=== PATIENT | male | born 1950 | race Caucasian/White ===

== ENCOUNTER 2016-12-25 14:21 | Inpatient (IN) | payer OTHER, BC ==
--- NOTE | ~2016-12-25 | PRECARD ---
[facility] [address] [place]. [address] NAME: MARLO JACKSON : 52 STATUS : REG ER PAT#: [id number] AGE: 66 ADM/REG DATE : 12/25/16 MR#: [id number] REPORT SERV DATE: 12/25/16 DICTATED BY: LUZ MARIA CARTER DATE: 12/25/16 REPORT STATUS : Draft TRANSCRIBED BY: JAMAAL DATE: 12/25/16 DATE OF ADMISSION: 12/25/2016 HISTORY OF PRESENT ILLNESS: Mr. Marlo Jackson is a 66-year-old gentleman with known coronary artery disease, admitted to the emergency room with ongoing chest discomfort. Mr. Jackson had bypass surgery with Dr. Sheikh, 01/1999. He had multiple subsequent percutaneous interventions, including stents placed to the vein graft in 05/2016. He had had recurrent chest pain in the last two weeks. He has been taking nitroglycerin 3 or 4 per day. Today, he is developing resting symptoms. He reported to the emergency room, ongoing discomfort, the EKG is unchanged, troponin is 3.07. He denies orthopnea or PND. No palpitations. No recent stroke or stroke-like symptoms. PAST MEDICAL HISTORY: 1. Prior tobacco use. 2. History of lung cancer. 3. Diabetes. 4. Hypertension. SOCIAL HISTORY: He is a retired RN. MEDICATIONS: He is uncertain, we are trying to obtain med list now. FAMILY HISTORY: Positive for coronary artery disease. REVIEW OF SYSTEMS: Complete review of systems was obtained, pertinent negative and unremarkable except as noted above and below. All systems addressed. PHYSICAL EXAMINATION: VITAL SIGNS: Blood pressure is 140/80, heart rate is about 70. GENERAL: Comfortable, in no acute distress. HEENT: No xanthelasma; lips without cyanosis LUNGS: Clear to auscultation, no wheezes, rales or rhonchi; good breath sounds. COR: No JVD or hepatojugular reflux, no murmurs, rubs or gallops, impulse mid clavicular line without carotid or abdominal bruits; normal S1 and S2. ABDOMEN: Bowel sounds positive, normal activity, without tenderness, masses or hepatosplenomegaly. EXTREMITIES: No edema, cyanosis. SKIN: Normal turgor. Ms: Normal muscle strength, without kyphosis/scoliosis. NEURO/PSYCH: Alert and oriented times 4, no apparent anxiety or depression. EKG, sinus rhythm with T-wave inversion in lateral leads noted previously. H&P [address] [address] NAME: MARLO JACKSON : 52 STATUS : REG ER PAT#: [id number] AGE: 66 ADM/REG DATE : 12/25/16 MR#: [id number] REPORT SERV DATE: 12/25/16 DICTATED BY: LUZ MARIA CARTER DATE: 12/25/16 REPORT STATUS : Draft TRANSCRIBED BY: JAMAAL DATE: 12/25/16 LABORATORY DATA: BUN 14, creatinine 1.1. Hematocrit 46.3. Troponin 3.08. Glucose 123. ASSESSMENT: Mr. Jackson is a very nice 66-year-old gentleman with known coronary artery disease, prior bypass surgery, ongoing chest discomfort. Troponin is elevated. EKG is unchanged. PLAN: Plan to commence treatment with heparin, aspirin, nitroglycerin, perhaps nitroglycerin IV. We will plan on proceeding with cardiac catheterization and possible angioplasty. I discussed the risks, benefits, and alternatives with Mr. Jackson. He understands and agrees to proceed. SHONA/JAMAAL Luz Maria Carter M.D. / [id number] CC: Favio Cheek II, M.D.
[2016-12-25 13:14] LABS: BASOPHILS 0.7 %; BASOPHILS ABSOLUTE 0.06 10/3/uL (0.0-0.16); EOSINOPHILS ABSOLUTE 0.37 10/3/uL (0.0-0.53); HEMATOCRIT 46.3 % (40.0-51.0); HEMOGLOBIN 16.2 g/dL (13.6-17.8); IMMATURE GRANULOCYTES 0.2 %; IMMATURE GRANULOCYTES ABSOLUTE 0.02 10/3/uL (0.0-0.11); LYMPHOCYTES 20.1 %; LYMPHOCYTES ABSOLUTE 1.85 10/3/uL (0.67-4.30); MEAN CORPUSCULAR HEMOGLOB 28.2 pg (26.0-34.0); MEAN CORPUSCULAR VOLUME 80.5 fL (80-100); MEAN PLATELET VOLUME 9.8 fL (9.2-13.0); MONOCYTES 5.1 %; MONOCYTES ABSOLUTE 0.47 10/3/uL (0.21-1.20); NEUTROPHILS 69.9 %; NEUTROPHILS ABSOLUTE 6.42 10/3/uL (2.02-8.40); PLATELET COUNT 123 10/3/uL (150-400); RBC DISTRIBUTION WIDTH 14.2 % (12.0-16.0); RED CELL COUNT 5.75 10/6/uL (4.7-6.1)
[2016-12-25 13:17] LABS: ER CBC TAT 0 Hrs 09 Mins; MANUAL DIFF NO %; WHITE BLOOD CELLS 9.2 10/3/uL (4.5-10.5)
[2016-12-25 13:26] LABS: INTERNATIONAL NORMAL RATI 1.1 UNITS (-); PARTIAL THROMBO TIME 28.6 SEC (22.5-37.2); PROTIME (NOT ORD) 14.2 SEC (12.0-14.5)
[2016-12-25 13:31] LABS: BUN (BLOOD UREA NITROGEN) 14 MG/DL (6-23); CHLORIDE, SERUM 102 MMOL/L (96-112); CREATININE 1.13 MG/DL (0.70-1.30); GFR AFRICAN AMERICAN 79 ML/MIN (>=60); GFR NON AFRICAN AMERICAN 68 ML/MIN (>=60); GLUCOSE, SERUM 124 MG/DL (60-99); POTASSIUM, SERUM 4.1 MMOL/L (3.5-5.3); SODIUM, SERUM 137 MMOL/L (135-148)
[2016-12-25 13:34] LABS: CALCIUM, SERUM 9.4 MG/DL (8.5-10.4); CHEST PAIN PROFILE TAT 0 Hrs 26 Mins; CO2 (CARBON DIOXIDE) 30 MMOL/L (24-34); TROPONIN I 3.08 NG/ML (<0.05)
[~2016-12-25 14:21] MED LIST: AMB5 PO; ASAB PO; ATIVAN2 MG PO; BIST PO; BUSPAR10 PO; BUSPAR15 M1 PO; CO Q-10100 MG PO; COMBIVENT INH; COMBIVENT RESPIM4 GM INH; COQ-10200 MG PO; COQ10100 MG OR; COQ10100 MG PO; COREG25 PO; CRESTOR10 PO; CYANO1000T PO; CYMBALTA60 PO; DEPO-TESTOS200 MG/ML IM; FISH-EPA1000 MG PO; FOLIC PO; FOLTX PO; GLUCOPHAGE1000 MG PO; GLUCOPHXR PO; GLUCPH PO; L20 PO; LANTUS SC; MONOPRIL40 MG PO; NITROII30C TOP; NITROQUICK0.4 MG SL; NITROSTAT0.4 MG SL; NITROSTAT0.6 MG SL; NORCO1 TA2 PO; NORV5 PO; OXYCON10 PO; PLAVIX PO; PROMEGA PO; RAN500 PO; RANEXA1000 MG PO; VITAMIN B PO; VITAMIN B-121000 MC1 SL; VITAMIN B-625 MG OR; VITAMIN D31000 UNIT PO; ZANTAC150 MG PO; ZOCOR10 PO; ZOL100 PO
[2016-12-25] MEDS ORDERED: PLAVIX PO (14:25)
[2016-12-25] MEDS ORDERED: L20 PO (14:26)
[2016-12-25] MEDS ORDERED: BUSPAR10 PO (14:26)
[2016-12-25] MEDS ORDERED: GLUCOPHAGE1000 MG PO (14:26)
[2016-12-25] MEDS ORDERED: COREG25 PO (14:26)
[2016-12-25] MEDS ORDERED: MONOPRIL40 MG PO (14:26)
[2016-12-25] MEDS ORDERED: HALF81 PO (14:27)
[2016-12-25] MEDS ORDERED: CYMBALTA60 PO (14:27)
[2016-12-25] MEDS ORDERED: NITROII30C TOP (14:28)
[2016-12-25] MEDS ORDERED: NORV10 PO (14:28)
[2016-12-25] MEDS ORDERED: ATIVAN2 MG PO (14:29)
[2016-12-25] MEDS ORDERED: PROMEGA PO (14:29)
[2016-12-25] MEDS ORDERED: CO Q-10100 MG PO (14:29)
[2016-12-25] MEDS ORDERED: NORCO1 TA2 PO (14:29)
[2016-12-25] MEDS ORDERED: XALAT OPH (14:30)
[2016-12-25] MEDS ORDERED: TESTOST CYP100 MG/ML IM (14:30)
[2016-12-25] MEDS ORDERED: PROVHFA INH (14:30)
[2016-12-25 18:25] LABS: ASCORBIC ACID (UR NOT ORDER) NEG (NEG); BILIRUBIN, URINE NEGATIVE (NEG); KETONE, URINE TRACE MG/DL (NEG); LEUKOCYTE ESTERASE(NOT OR NEG (NEG); WBC (NOT ORDERED) (RFLEX) < 1 (0-5)
[2016-12-26 05:42] LABS: CHOL/HDL RATIO(NOT ORDER) 4.8 (0-5)
[2016-12-27 03:57] LABS: BASOPHILS 0.7 %; BASOPHILS ABSOLUTE 0.05 10/3/uL (0.0-0.16); EOSINOPHILS 5.3 %; EOSINOPHILS ABSOLUTE 0.36 10/3/uL (0.0-0.53); HEMATOCRIT 43.9 % (40.0-51.0); HEMOGLOBIN 15.3 g/dL (13.6-17.8); IMMATURE GRANULOCYTES 0.3 %; IMMATURE GRANULOCYTES ABSOLUTE 0.02 10/3/uL (0.0-0.11); LYMPHOCYTES 27.5 %; LYMPHOCYTES ABSOLUTE 1.87 10/3/uL (0.67-4.30); MANUAL DIFF NO %; MEAN CORPUS HGB CONC 34.9 g/dL (32.0-36.0); MEAN CORPUSCULAR HEMOGLOB 28.2 pg (26.0-34.0); MEAN PLATELET VOLUME 9.7 fL (9.2-13.0); MONOCYTES 8.2 %; MONOCYTES ABSOLUTE 0.56 10/3/uL (0.21-1.20); NEUTROPHILS ABSOLUTE 3.95 10/3/uL (2.02-8.40); PLATELET COUNT 108 10/3/uL (150-400); RBC DISTRIBUTION WIDTH 14.1 % (12.0-16.0); RED CELL COUNT 5.42 10/6/uL (4.7-6.1); WHITE BLOOD CELLS 6.8 10/3/uL (4.5-10.5)
[2016-12-27 04:09] LABS: BUN (BLOOD UREA NITROGEN) 14 MG/DL (6-23); CHLORIDE, SERUM 107 MMOL/L (96-112); CO2 (CARBON DIOXIDE) 28 MMOL/L (24-34); CREATININE 1.05 MG/DL (0.70-1.30); GFR AFRICAN AMERICAN 86 ML/MIN (>=60); GFR NON AFRICAN AMERICAN 74 ML/MIN (>=60); GLUCOSE, SERUM 150 MG/DL (60-99); POTASSIUM, SERUM 3.9 MMOL/L (3.5-5.3); SODIUM, SERUM 141 MMOL/L (135-148)
== END 2016-12-27 08:25 | disposition home or self-care (01) | DRG 247 ==
LOC: ER 14:21 → SSU1 15:13 → ER 15:14 → SSU1 18:00
PROVIDERS: Emergency Medicine; Internal Medicine Cardiovascular Disease
PROC: 027034Z Dilation of Coronary Artery, One Artery with Drug-eluting Intraluminal Device, Percutaneous Approach (ICD-10-PCS; principal; 2016-12-25)
PROC: 4A023N7 Measurement of Cardiac Sampling and Pressure, Left Heart, Percutaneous Approach (ICD-10-PCS; 2016-12-25)
PROC: B2151ZZ Fluoroscopy of Left Heart using Low Osmolar Contrast (ICD-10-PCS; 2016-12-25)
PROC: B2131ZZ Fluoroscopy of Multiple Coronary Artery Bypass Grafts using Low Osmolar Contrast (ICD-10-PCS; 2016-12-25)
PROC: B2111ZZ Fluoroscopy of Multiple Coronary Arteries using Low Osmolar Contrast (ICD-10-PCS; 2016-12-25)
DX: I21.4 Non-ST elevation (NSTEMI) myocardial infarction (principal); I10 Essential (primary) hypertension; I25.710 Atherosclerosis of autologous vein coronary artery bypass graft(s) with unstable angina pectoris; I25.110 Atherosclerotic heart disease of native coronary artery with unstable angina pectoris; E11.9 Type 2 diabetes mellitus without complications; E78.00 Pure hypercholesterolemia, unspecified; E66.9 Obesity, unspecified; E78.5 Hyperlipidemia, unspecified; Z88.0 Allergy status to penicillin; Z88.8 Allergy status to other drugs, medicaments and biological substances; Z95.1 Presence of aortocoronary bypass graft; Z95.5 Presence of coronary angioplasty implant and graft; Z82.49 Family history of ischemic heart disease and other diseases of the circulatory system; Z85.118 Personal history of other malignant neoplasm of bronchus and lung; Z87.891 Personal history of nicotine dependence; Z68.30 Body mass index [BMI] 30.0-30.9, adult; Z79.82 Long term (current) use of aspirin; Z79.84 Long term (current) use of oral hypoglycemic drugs
CPT/HCPCS: 71020; 80048; 80061; 81001; 82962; 83735; 84460; 84484; 85025; 85347; 85610; 85730; 93005; 93306; 93459; 94640; 99152; 99153; 99285; A9270-GY; C1725; C1757; C1760; C1769; C1874; C1887; C9604; J1327; J2250; J3010; Q9967